=== PATIENT | male | born 2000 | race Native Hawaiian/Other Pacific Islander ===

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

== ENCOUNTER 2022-01-28 08:14 | Emergency (ER) | payer BC ==
[~2022-01-28] VITALS: Ht 180.3 cm; Wt 70.3 kg
[2022-01-28 08:20] VITALS: TEMP 98.2
[2022-01-28 08:57] LABS: PLATELET COUNT 199 K/uL (142-355)
[2022-01-28 09:08] LABS: POTASSIUM 3.9 mmol/L (3.6-5.2)
[2022-01-28 09:15] LABS: PARTIAL THROMBOPLASTIN TIME 31.2 SECONDS (24.5-33.6)
[2022-01-28 10:55] VITALS: BP 119/72
== END 2022-01-28 10:59 | disposition home or self-care (01) ==
LOC: ED 08:14
PROVIDERS: Family Medicine
DX: M94.0 Chondrocostal junction syndrome [Tietze] (principal)
CPT/HCPCS: 36415; 80053; 82550; 84484; 85027; 85610; 85730; 93005; 96374; 99284; J1885